=== PATIENT | female | born 1995 | race Caucasian/White ===

== ENCOUNTER 2022-08-12 09:52 | Emergency (ER) | payer OTHER ==
[2022-08-12 10:10] VITALS: RESP 18; BMI 23.6
[2022-08-12 11:23] LABS: EPI CELLS 9 /uL (0-25.1); HYALINE CASTS 0 /uL (0-3.1); URINE APPEARANCE TURBID; URINE BACTERIA 5143 /uL (0-1359); URINE BILIRUBIN NEGATIVE (NEGATIVE); URINE COLOR YELLOW; URINE GLUCOSE (UA) NEGATIVE (NEGATIVE); URINE KETONE NEGATIVE (NEGATIVE); URINE LEUK ESTERASE 3+ (NEGATIVE); URINE NITRITE NEGATIVE (NEGATIVE); URINE PROTEIN 2+ (NEGATIVE); URINE RBC 80 /uL (0-23.9); URINE UROBILINOGEN 0.2 mg/dL (0.2-1.0); URINE WBC 3541 /uL (0-25.8)
[2022-08-12 11:24] LABS: HCG,QUALITATIVE URINE Negative
[2022-08-12 11:25] LABS: YEAST NEGATIVE (NEGATIVE)
[2022-08-12] MEDS ORDERED: SODIUM CHLORIDE 0.9% 1000 ML INFUS.BAG IV ONE (11:57)
[2022-08-12] MEDS ORDERED: KETOROLAC TROMETHAMINE 15 MG/ML VIAL IVPUSH ONE (11:58)
[2022-08-12 12:00] LABS: HEMOGLOBIN 13.1 GM/dL (10.7-15.3); RBC 4.19 M/mm3 (3.60-5.2); WHITE BLOOD COUNT 13.3 K/mm3 (4.0-10.0)
[2022-08-12 12:01] LABS: BASO % 0.3 % (0-2.0); EOS % 0.5 % (0-4.5); HEMATOCRIT 38.2 % (32.4-45.2); LYMPH % 13.1 % (8-40); MCH 31.3 pg (25.7-33.7); MCHC 34.4 g/dl (32.0-36.0); MEAN CELL VOLUME 91.1 fl (80-96); MEAN PLT VOLUME 6.9 fl (7.5-11.1); MONO % 6.9 % (3.8-10.2); NEUT % 79.2 % (42.8-82.8); PLATELET COUNT 427 10^3/uL (134-434); RDW 13.5 % (11.6-15.6)
[2022-08-12] MEDS ORDERED: CEFTRIAXONE 1,000 MG in DEXTROSE 5%-WATER - 50 ML IVPB ONE (12:03)
[2022-08-12 12:15] LABS: POTASSIUM 4.2 mmol/L (3.5-5.1)
[2022-08-12 12:17] LABS: CALCIUM 9.4 mg/dL (8.5-10.1)
[2022-08-12 12:18] LABS: ALBUMIN 3.9 g/dl (3.4-5.0); BLOOD UREA NITROGEN 13.2 mg/dL (7-18)
[2022-08-12 12:20] LABS: CREATININE 0.8 mg/dL (0.55-1.3)
[2022-08-12 12:22] LABS: TOT PROT 7.8 g/dl (6.4-8.2)
[2022-08-12 12:23] LABS: BILIRUBIN,TOTAL 0.5 mg/dL (0.2-1)
[2022-08-12] MEDS ORDERED: KETOROLAC TROMETHAMINE 15 MG/ML VIAL ONE (13:17)
[2022-08-12 14:54] VITALS: BP 105/68; PULSE 80; TEMP 98.1
== END 2022-08-12 14:55 | disposition home or self-care (01) ==
LOC: JERFT 09:52
PROC: 3E03329 Introduction of Other Anti-infective into Peripheral Vein, Percutaneous Approach (ICD-10-PCS; principal; 2022-08-12)
PROC: 3E0333Z Introduction of Anti-inflammatory into Peripheral Vein, Percutaneous Approach (ICD-10-PCS; 2022-08-12)
DX: R30.0 Dysuria (principal); R35.0 Frequency of micturition; R11.0 Nausea; N12 Tubulo-interstitial nephritis, not specified as acute or chronic
CPT/HCPCS: 36415; 74176-TC; 76775-TC; 80053; 81003; 83605; 84703; 85025; 87086; 87186; 99285-25

== ENCOUNTER 2023-02-14 08:20 | Emergency (ER) | payer OTHER ==
[2023-02-14 08:24] VITALS: BP 108/69; PULSE 75; RESP 18; TEMP 98.4; BMI 23.6
[2023-02-14 09:43] LABS: URINE APPEARANCE CLOUDY; URINE BILIRUBIN NEGATIVE (NEGATIVE); URINE COLOR YELLOW; URINE GLUCOSE (UA) NEGATIVE (NEGATIVE); URINE KETONE NEGATIVE (NEGATIVE); URINE LEUK ESTERASE NEGATIVE (NEGATIVE); URINE NITRITE NEGATIVE (NEGATIVE); URINE PROTEIN NEGATIVE (NEGATIVE); URINE UROBILINOGEN 0.2 mg/dL (0.2-1.0)
[2023-02-14 09:45] LABS: HCG,QUALITATIVE URINE Negative
[2023-02-14] MEDS ORDERED: ACETAMINOPHEN 500 MG TABLET (FP) PO ONE (10:40)
[2023-02-14] MEDS ORDERED: KETOROLAC TROMETHAMINE 30 MG/1 ML VIAL IM ONE (10:41)
[2023-02-14] MEDS ORDERED: KETOROLAC TROMETHAMINE 30 MG/1 ML VIAL ONE (10:52)
[2023-02-14] MEDS ORDERED: ACETAMINOPHEN 325 MG TABLET (FP) ONE (10:52)
[2023-02-14] MEDS ORDERED: FLUCONAZOLE 150 MG TABLET PO ONE ×2 (12:59→13:03)
== END 2023-02-14 13:07 | disposition home or self-care (01) ==
LOC: JER 08:20
PROC: 3E0233Z Introduction of Anti-inflammatory into Muscle, Percutaneous Approach (ICD-10-PCS; principal; 2023-02-14)
DX: R10.32 Left lower quadrant pain (principal); R11.0 Nausea; L29.2 Pruritus vulvae; B37.31 Acute candidiasis of vulva and vagina
CPT/HCPCS: 36415; 76830-TC; 81003; 84703; 87086; 87491; 87591; 99284-25